=== PATIENT | female | born 1990 | race Caucasian/White ===

== ENCOUNTER 2022-06-30 15:01 | Emergency (ER) | payer OTHER ==
[~2022-06-30] VITALS: Ht 172.7 cm; Wt 122.5 kg
[2022-06-30 15:04] VITALS: BP 146/86
[2022-06-30] MEDS ORDERED: KETOROLAC 30 MG/ML VIAL IM ONE (15:40)
--- NOTE | 2022-06-30 15:59 | NUR ---
medicated for right leg pain as ordered, o2 sat 99% ra, sr up times 2, n/c inctact
[2022-06-30] MEDS ORDERED: IBUP-2213 PO (16:23)
[2022-06-30] MEDS ORDERED: ACET-8386 PO (16:23)
--- NOTE | 2022-06-30 16:43 | NUR ---
SHORT LEG POSTERIOR APPLIED TO R LOWER LEG. + CMS. WRAPPED WITH [place] WRAP X 2. PT PROVIDED WITH CRUTCHES. RETURNED SAFE USE OF DEMONSTRATION.
[2022-06-30 16:57] VITALS: BP 128/76
--- NOTE | 2022-06-30 16:58 | NUR ---
Patient discharged with v/s stable. Written and verbal after care instructions given and explained. Patient verbalized understanding. Ambulatory with steady gait on crutches, proper use noted. All questions addressed prior to discharge. Advised to follow up with PMD. CD of images given, to follow up w pmd in 2-3 days for ortho referral pain 10/05, splint placed by jamari, n/c intact.
== END 2022-06-30 16:58 | disposition home or self-care (01) ==
LOC: MED 15:01
DX: S82.831A Other fracture of upper and lower end of right fibula, initial encounter for closed fracture (principal); Z88.0 Allergy status to penicillin; Z79.899 Other long term (current) drug therapy; W01.0XXA Fall on same level from slipping, tripping and stumbling without subsequent striking against object, initial encounter; Y93.89 Activity, other specified; Y92.89 Other specified places as the place of occurrence of the external cause; Y99.8 Other external cause status
CPT/HCPCS: 29515; 73590; 73610; 73630; 96372; 99284; J1885; Q0092